=== PATIENT | male | born 1975 | race Caucasian/White ===

== ENCOUNTER 2025-06-13 18:51 | Emergency (ER) | payer SELFPAY ==
--- NOTE | 2025-06-13 19:42 | ED.GENMED ---
History of Present Illness
General
Chief Complaint: Crisis Evaluation
Time Seen by Provider: 06/13/25 19:06
History of Present Illness
History of Present Illness:
49-year-old male with no reported past medical history presenting after being placed under 302. Patient was allegedly 302-ed by ex-girlfriend for increasing aggressive behavior with delusions and paranoia. Police were called to the house and
patient was brought into the hospital. Patient denies any underlying psychiatric history. Denies any acute medical complaints. Denies SI or HI. Denies additional acute medical complaints
Phy Exam
Physical Exam
Physical Exam:
General: Well-appearing, no clinical signs of dehydration, nontoxic and in no acute distress
HEENT: protecting airway
Neck: appears supple
CV: Normal heart rate
Resp: No accessory muscle use, no increased work of breathing
Abd: no distension
Extremities: No deformities, no swelling
Neuro: alert, no focal neurologic deficit
: deferred
Rectal: deferred
Psych: Normal affect
Skin: Intact
Course
Orders/Labs/Results
Orders:
Orders
06/13/25 20:10
Crisis Consult Urgent
Reason for Consult: 302
06/13/25 23:57
One to One Observation - Suicide/Violent [1:1 Observation - Suicide/ Violent Behavior] As Directed
Comment: 302
06/14/25 Lunch
Regular
At Your Request: Full Participation
Does patient need a safe tray?: No
06/14/25 11:09
Nicotine Polacrilex [Nicorette] 4 mg PO Q4HPRN PRN
Vital Signs
Initial and Last Documented VS:
Initial Vital Signs
Temp Pulse Resp BP Pulse Ox
98.5 F 97 18 160/115 100
06/13/25 22:20 06/13/25 22:20 06/13/25 22:20 06/13/25 22:20 06/13/25 22:20
Last Documented Vital Signs
Temp Pulse Resp BP Pulse Ox
98.5 F 115 18 141/89 98
06/14/25 17:00 06/14/25 17:00 06/14/25 17:00 06/14/25 17:00 06/14/25 17:00
MDM/Problems Addressed
MDM/Problems Addressed:
49-year-old male presenting under a 302 for concern of aggression, paranoia, delusions. Vital signs are significant for mild hypertension, however initially agitated.
On exam patient resting comfortably, currently cooperative, however denies any delusions, paranoia, SI, HI. Will consult with crisis and likely telepsych given 302 status.
21:30 -302 upheld by telepsych. Will proceed with bed search.
*Pulse Oximetry
Patient hypoxic: no
*Critical Care Note
Total Time (30-74mins, 75-104mins- exclusive of procedures): Not Applicable
ED Attending Note
-
Portions of this chart may have been created with voice recognition software.� Occasional wrong word or��sound alike� substitutions may have occurred due to the inherent limitations of voice recognition software.
Discharge Plan
Departure
Patient Disposition: Psych Facility
Date of Disposition: 06/14/25
Time of Disposition: 10:08
Discharge Problem:
Aggressive behavior, Acute paranoia
Referrals:
NONE,* [Family Provider, Internal Medicine]
Interventions
Interventions:
*Risk Screen - Suicide Last Done: 06/13/25 18:57
*General Assessment Last Done: 06/13/25 18:57
*Neglect/Abuse Screening Last Done: 06/13/25 18:57
*ED- Fall Risk Assessment Last Done: 06/13/25 18:57
*ED COVID-19 Vaccine History Last Done: 06/13/25 18:57
*ED Influenza Vaccine History Last Done: 06/13/25 18:57
*Nursing Disposition Last Done: 06/14/25 17:02
ED-Psychological Assessment Last Done: 06/13/25 19:10
Discharge Date and Time
Discharge Date/Time: 06/14/25 17:40
Print Language: BOTSWANAN
[2025-06-13 22:20] VITALS: BP 160/115
[2025-06-14 01:46] VITALS: BMI 25.3
[2025-06-14 04:20] VITALS: BP 148/82
--- NOTE | 2025-06-14 09:22 | EDRN ---
This RN alerted that patient would like to speak with this RN, This RN entered room to speak with patient along with the crisis team. Pt appeared to be agitated, disorganized and was speaking in an aggressive manor. Pt continually speaking over this
RN and crisis raising his voice. Pt holding a bill of right and requesting to speak to a supervisor advice d/t the 302. Pt reports that the person filing the 302 is not of sound mind and the crisis team is not helping him. Pt was informed of the 302 process
and that a phone would be given to him to speak with a supervisor advice. Pt upset that he is in paper scrubs, patient informed on the [place] [employer] policy and that his belonings are currently with security, would be given back to him when he is taken to [facility].
Pt patient was also requesting breakfast, this RN informed patient that breakfast was ordered and should be here shortly. Pt stated to this RN and crisis ' You do not know anything, I don't want to talk to you both anymore'. Pt informed that
breakfast would be brought in as soon as it arrives and crisis was getting phone for patient.
--- NOTE | 2025-06-14 09:32 | EDRN ---
Breakfast Tray given to patient. Pt currently speaking with his mother on the phone.
--- NOTE | 2025-06-14 09:56 | EDRN ---
This RN entered room d/t patient having concerns about leaving. Pt requesting to speak with an advocate. This RN informed patient that the advocate was not scheduled on weekends but she would find someone to come speak with him about his concerns.
Crisis also in the room to discuss the 302 process with patient, that patient stated ' I am not being aggressive, I am enforcing my rights' Pt then asking why the patient next to him was not placed in paper scrubs, This RN stated she was unable to
discuss other patient's mental and medical status with the patient. Pt stated to this RN that he did not care and wanted to know why he was not in his clothing. Pt informed that it was for his safety. Pt continued talking to his mother on the phone
and told her to take documentation of this. Pt then again asking for advocate. The patient informed that this RN would have someone talk to him about his concerns, Pt stated to this RN ' you obviously do not know you job if now you have someone for
me to talk to'.
Dr. Saleh made aware of patient's concerns and he will be in to talk wit patient.
--- NOTE | 2025-06-14 10:07 | ED.CRISIS ---
ED Crisis Note
ED Crisis Note
Subjective:
Patient is agitated yelling at staff. Requesting a ocean lifeguard specialist. Does not want to go to his facility
Objective:
Awake and alert. Verbally aggressive. Yelling at staff. No respiratory distress. Poor insight. Poor judgment.
Assessment/Plan:
49-year-old male on a 302. Seen by telepsych. 302 upheld. Patient for sure on my assessment has poor insight and judgment as he is yelling at staff.
--- NOTE | 2025-06-14 10:14 | EDRN ---
Dr. Saleh entered crisis rooms to speak with patient. Pt refused to get off the phone and speak with Dr. Saleh, Pt talking over Dr. Saleh in an aggressive manor. Pt was requesting to have the reason he was 302'd provided. This RN contacted Crisis
for a copy of the 302 and psychiatrist reports as to why the 302 was upheld. Pt continued to argue with Dr. Saleh that the person that 302'd him was not of sound mind and that he was told he was not safe, but also told he had paranoia. Pt speaking
with mother on phone and refusing to let staff speak with him, by speaking over Dr. Saleh. Pt was informed by Dr. Saleh that the paranoia led to the concern for his safety. [facility] provided copy of report to Dr. Saleh, when Dr. Saleh attempted to
read the report the patient refused to listen. Pt then stated to his mother that he wanted her to document that everyone was ganging up on him and refusing him his advocate. Pt raised his voice at Dr. Saleh when he explained that he was advocating
for him. Pt become angry and agitated. ER provider left the room and requested that patient no longer speak on the phone, d/t increasing his agitation. Security called to assist in returning the phone to crisis.
--- NOTE | 2025-06-14 10:44 | EDRN ---
Pt sitting in stretcher talking with Crisis. Nursing [employer] in room to speak with patient d/t his concerns. Pt cooperative at this time. This RN provided patient with menu and informed patient to let this RN know when he is ready to order. Pt
also requesting to smoke, pt informed the facility is none smoking but would get him nicotine patch or gum. Pt requesting nicotine gum. ER provider made aware.
[2025-06-14] MEDS: NICORETTE 4 MG PO (11:14)
[2025-06-14 14:00] VITALS: BP 142/99
[2025-06-14 17:00] VITALS: BP 141/89
== END 2025-06-14 17:40 ==
LOC: EMR 18:51
PROVIDERS: EMERGENCY PHYSICIAN Student in an Organized Health Care Education/Training Program
DX: F22 Delusional disorders (principal); R03.0 Elevated blood-pressure reading, without diagnosis of hypertension
CPT/HCPCS: 99285